=== PATIENT | female | born 1965 | race Caucasian/White ===

== ENCOUNTER 2017-04-13 22:32 | Emergency (ER) | payer MEDICAID ==
[~2017-04-13] VITALS: Ht 162.6 cm; Wt 90.7 kg
[2017-04-13 22:36] VITALS: BP 132/85
[2017-04-13] MEDS ORDERED: FLUORESCEIN SODIUM OPHTH 1 EA STRIP ONE (22:48)
[2017-04-13] MEDS ORDERED: TETRACAINE HCL/PF 0.5% UD 2 ML BOTTLE ONE (22:48)
[2017-04-13] MEDS ORDERED: FLUORESCEIN SODIUM OPHTH 1 EA STRIP OP ONE (23:00)
[2017-04-13] MEDS ORDERED: TETRACAINE HCL/PF 0.5% UD 2 ML BOTTLE OP ONE (23:00)
== END 2017-04-13 23:20 | disposition home or self-care (01) ==
LOC: ER 22:37
DX: S05.02XA Injury of conjunctiva and corneal abrasion without foreign body, left eye, initial encounter (principal); H01.004 Unspecified blepharitis left upper eyelid; Z88.0 Allergy status to penicillin; X58.XXXA Exposure to other specified factors, initial encounter; Y93.89 Activity, other specified; Y92.89 Other specified places as the place of occurrence of the external cause; Y99.9 Unspecified external cause status
CPT/HCPCS: 99283; A4606; Z7610